=== PATIENT | male | born 1965 | race Caucasian/White ===

== ENCOUNTER 2021-10-14 10:05 | Emergency (ER) | payer BC ==
[2021-10-14] MEDS ORDERED: METOPROLOL SUCC25 M1 (10:13)
[2021-10-14] MEDS ORDERED: BYDUREON B2 MG/0.85 (10:13)
[2021-10-14] MEDS ORDERED: MELOXICAM5 MG (10:14)
[2021-10-14 11:37] LABS: BASO # 0.01 K/mm3 (0.02-0.10); EOS # 0.03 K/mm3 (0.04-0.40); EOS % 0.4 % (0.0-4.0); HEMATOCRIT 51.3 % (42.0-52.0); HEMOGLOBIN 17.2 g/dL (13.5-18.0); LYMPH# 1.58 K/mm3 (1.50-4.00); MEAN CELL VOLUME 94 fl (78-100); MEAN CORPUSCULAR HEMOGLOBIN 32 pg (27-31); MEAN CORPUSCULAR HGB CONC 34 g/dL (33-37); MEAN PLATELET VOLUME 9.2 fl (7.4-10.4); MONO # 0.57 K/mm3 (0.20-0.80); PLATELET COUNT 222 K/mm3 (130-400); RED BLOOD COUNT 5.45 M/mm3 (4.20-5.60); RED CELL DISTRIBUTION WIDTH 12.5 % (11.5-14.5); WHITE BLOOD COUNT 7.2 K/mm3 (4.8-10.8)
[2021-10-14 11:45] LABS: ALBUMIN 4.1 g/dL (3.5-5.0); POTASSIUM 4.2 mmol/L (3.5-5.1); SODIUM 138 mmol/L (136-145)
[2021-10-14 11:46] LABS: CALCIUM 9.7 mg/dL (8.3-10.5)
[2021-10-14 11:47] LABS: GLUCOSE 191 mg/dL (75-110); TOTAL PROTEIN 7.6 g/dL (6.4-8.3)
[2021-10-14 11:48] LABS: CARBON DIOXIDE 22 mmol/L (22-29)
[2021-10-14 11:49] LABS: TOTAL BILIRUBIN 0.5 mg/dL (0.2-1.2)
[2021-10-14 11:51] LABS: TROPONIN-I < 0.030 ng/mL (<0.030)
[2021-10-14 11:53] LABS: AST-SGOT 21 U/L (5-34)
[2021-10-14 11:54] LABS: ALT/SGPT 34 U/L (0-55)
[2021-10-14 12:13] LABS: D-DIMER 0.9 mg/L FEU (0.15-0.50)
[2021-10-14 12:14] LABS: URINE APPEARANCE CLEAR; URINE BILIRUBIN NEGATIVE (NEGATIVE); URINE BLOOD NEGATIVE (NEGATIVE); URINE COLOR YELLOW; URINE KETONE NEGATIVE (NEGATIVE); URINE NITRATE NEGATIVE (NEGATIVE); URINE PROTEIN(semi-quant) TRACE (NEGATIVE); URINE UROBILINOGEN NORMAL (NORMAL)
[2021-10-14 12:15] LABS: URINE LEUKOCYTE ESTERASE NEGATIVE (NEGATIVE); URINE WBC 0-1 /hpf (0-3)
[2021-10-14 15:13] VITALS: BP 141/100
== END 2021-10-14 15:08 | disposition home or self-care (01) ==
LOC: ED 10:05
PROVIDERS: Nurse Practitioner
DX: R07.9 Chest pain, unspecified (principal); R06.02 Shortness of breath; I10 Essential (primary) hypertension; Z91.14 Patient's other noncompliance with medication regimen; Z86.16 Personal history of COVID-19; Z79.899 Other long term (current) drug therapy
CPT/HCPCS: J2405; J7030; Q9967